=== PATIENT | male | born 2000 | race Caucasian/White ===

== ENCOUNTER 2019-10-07 18:42 | Emergency (ER) | payer BC, SELFPAY ==
--- NOTE | 2019-10-07 18:44 | XR_ITS ---
WS: [id number] XR chest 1V portable [id number] REASON FOR EXAM: cp FINDINGS: Lung wolfe are well aerated. No pneumothorax. No pneumonia, pleural effusion, pulmonary edema. The heart and mediastinum were normal. The hilum and apices normal. XR/XR chest 1V portable [id number] IMPRESSION: Negative chest for acute findings.
[2019-10-07 18:55] VITALS: BP 144/108; PULSE 86; RESP 18; TEMP 36.9; O2SAT 97; BMI 31.5
--- NOTE | 2019-10-07 19:10 | ECG_ITS ---
Measurements Intervals [place] Rate: 90 P: 58 MA: 116 QRS: 61 QRSD: 96 T: 40 QT: 325 QTc: 400 SINUS RHYTHM WITH SHORT MA INTERVAL Compared to ECG 04/25/2016 23:19:37 Short MA interval now present Sinus arrhythmia no longer present Electronically Signed On 10-08-2019 15:23:37 CDT by Faith Leon M.D. [id number]
--- NOTE | 2019-10-07 19:11 | W.ED.CHESTPA ---
HPI - Chest Pain General: Chief Complaint: Chest Pain Stated Complaint: CHEST PAIN, SOB Time Seen by Provider: 10/07/19 19:04 History of Present Illness: HPI narrative: Dima is a 19-year-old male who comes in complaining of a week's worth of sharp intermittent chest pain. The pain is located in the left side of his chest and will last for up to 5 to 10 minutes. Today symptoms have been going on for over an hour and is making him very anxious. He denies any associated symptoms such as shortness of breath, nausea/vomiting, diaphoresis, radiation of his pain or syncope or near syncope. He denies any exacerbating or alleviating factors or having an exertional component to the pain. Patient states there is a strong family history of heart dizziness his family and his mother wants him checked out for a heart attack. There is a family history of heart disease but no one has early onset heart disease in the family. Associated symptoms: Deny abdominal pain, diaphoresis, dyspnea, fever(s), nausea, palpitations, syncope or vomiting Review of Systems General: Reports: other (negative unless marked) Const: Denies: fever, chills, body aches, fatigue, malaise or diaphoresis Eyes: Denies: change in vision or blurry vision ENMT: Denies: throat pain, painful swallowing, hoarseness, ear pain, ear discharge, Change in hearing or nasal discharge Card: Reports: chest pain; Denies: palpitations, irregular heart rhythm, syncope, pre-syncope, shortness of breath on exertion or shortness of breath when lying down Resp: Denies: shortness of breath, productive cough, non-productive cough, wheezing, coughing up blood or chest congestion GI: Denies: abdominal pain, nausea, vomiting, vomiting blood, coffee grounds in vomit, diarrhea, constipation, cramping, blood in stool or black tarry stool : Denies: flank pain, difficulty urinating, painful urination, urinary frequency, urinary urgency, decreased urine ouput, urinary incontinence or blood in urine Musc: Denies: neck pain, back pain, extremity pain, extremity swelling, joint pain, joint swelling, joint warmth or joint stiffness Skin/Breast: Denies: rash, skin tenderness or yellow skin Neuro: Denies: headache, numbness in extremities, weakness in extremities, changes in sensation, lack of coordination, difficulty walking, dizziness, vertigo or confusion Endo: Denies: excessive thirst, tired all the time, cold intolerance, excessive sweating, flushing or hot flashes Alexandr/Lymph: Denies: easy bruising, easy bleeding, petechiae or enlarged lymph nodes All/Imm: Denies: hives, throat swelling, tongue swelling, facial swelling or acute wheezing PFSH ED PFSH: Medical History (Updated 10/07/19 @ 20:23 by Lelia Barney) No pertinent past medical history Surgical History (Updated 10/07/19 @ 19:13 by Lelia Barney) H/O shoulder surgery Family History (Updated 10/07/19 @ 19:13 by Lelia Barney) Other CAD (coronary artery disease) Hypertension Social History (Updated 10/07/19 @ 19:14 by Lelia Barney) Smoking and tobacco status: former smoker Substance/Drug Use: current Substance/Drug use type: Marijuana Physical Exam Const: COMMON NORMALS: no apparent distress, oriented x3, no limitations, healthy appearing and well nourished EXAM LIMITATIONS: no altered mental status GENERAL APPEARANCE: cooperative, well kempt and well developed ORIENTATION/CONSCIOUSNESS: Yes awake HENMT: COMMON NORMALS: normocephalic, head/scalp atraumatic, hearing grossly normal bilaterally, external ears normal, EAC's normal, external nose normal and moist oral mucous membranes HEAD & SCALP: normal to inspection, normocephalic and atraumatic FACE & SINUS: normal facial exam and face symmetric NOSE: external nose normal and nares normal EXTERNAL EAR: Yes external ears normal EXTERNAL AUDITORY CANAL: EAC's normal MOUTH: oral and palatal mucosa normal and tongue normal Eye: COMMON NORMALS: PERRL, EOMs intact bilaterally, conjunctivae normal and no scleral icterus GENERAL EYE: normal appearance of both eyes and normal light reflex CONJUNCTIVA: Yes conjunctivae normal SCLERA: sclerae normal CORNEA: Yes corneas normal PUPIL: Yes PERRL DIRECT OPHTHALMOSCOPY: Yes normal light reflex Neck/C-Spine: COMMON NORMALS: full ROM, no lymphadenopathy, supple, no meningeal signs and no JVD GENERAL: Yes normal visual inspection and Yes trachea midline CERVICAL SPINE: Yes cervical ROM normal Chest: COMMONS NORMALS: inspection of chest normal and palpation of chest normal Resp: COMMON NORMALS: normal respiratory effort, no retractions, no use of accessory muscles and clear to auscultation bilaterally EFFORT & INSPECTION: Yes able to speak in complete sentences AUSCULTATION: clear to auscultation bilaterally Cardio: COMMON NORMALS: no JVD, regular rate, regular rhythm, S1 normal heart sound, S2 normal heart sound, no gallops, no clicks, no murmurs and no rub JUGULAR VENOUS DISTENTION: no JVD RATE: regular rate RHYTHM: regular rhythm HEART SOUNDS: S1 normal and S2 normal GI: COMMON NORMALS: soft to palpation, non-tender, no hepatosplenomegaly and no masses INSPECTION: Yes normal to inspection PALPATION: Yes soft and Yes no hepatosplenomegaly : COMMON NORMALS: Yes no CVA tenderness BLADDER/KIDNEY EXAM: Yes no CVA tenderness Back/Pelvis: COMMON NORMALS: no CVA tenderness, thoracic and lumbar spine normal to inspection, no thoracic nor lumbar tenderness and thoraco-lumbar ROM normal Extremity: COMMON NORMALS: normal to inspection, full ROM, normal capillary refill, no joint enlargement, no clubbing, cyanosis or edema and no calf tenderness Neuro: COMMON NORMALS: oriented x3, CN's II-XII intact bilaterally, moves all extremities, no focal motor deficits and no sensory deficits noted MENINGEAL SIGNS: Yes no meningeal signs Psych: COMMON NORMALS: mental status grossly normal, thought process normal, cooperative, affect normal, speech normal and activity/motor behavior normal APPEARANCE: Yes well kempt SPEECH: Yes normal speech THOUGHT PROCESS: normal thought process Skin: COMMON NORMALS: no rashes or lesions noted, skin turgor normal, no jaundice, no petechiae and no mottling GENERAL SKIN EXAM: no rashes or lesions noted and turgor normal Course Vital Signs: Vital signs: Vital Signs Temperature 98.5 F 10/07/19 18:55 Pulse Rate 85 10/07/19 21:04 Respiratory Rate 16 10/07/19 21:04 Blood Pressure 144/95 10/07/19 21:04 Pulse Oximetry 98 10/07/19 21:04 MDM - Chest Pain MDM Narrative: Medical decision making narrative: Dima is a 19-year-old male who comes in stating that he has having an anxiety attack now. He states he is under a great deal of stress at home. He did not think that the chest pain was caused by his heart but he wanted to please his mother and so he underwent the evaluation. There is no sign of acute coronary syndrome, pulmonary embolism or otherwise. I will go and discharge the patient home with Atarax for anxiety and he agrees to follow-up with his doctor or with the behavioral health clinic in [place] for possible addition of anxiety medication. Lab Data: Labs: Lab Results 10/07/19 10/07/19 10/07/19 Range/Units 19:23 19:23 19:23 WBC 10.6 H (4.0-10.0) 10^3/ uL RBC 5.21 (4.1-5.3) 10^6/u L Hgb 14.4 (11.7-16.6) g/dL Hct 43.8 (42.0-52.0) % MCV 84.1 (80-94) fL MCH 27.6 L (28.0-34.0) pg MCHC 32.9 (30.0-36.0) g/dL RDW 12.1 (12.1-15.1) % Plt Count 258 (130-400) 10^3/c mm MPV 10.3 (7.4-10.4) fL Neut % (Auto) 71.6 % Lymph % (Auto) 18.8 % Harrison % (Auto) 6.5 % Eos % (Auto) 2.1 % Baso % (Auto) 0.5 % Neut # (Auto) 7.6 (1.8-7.7) 10^3/u L Lymph # (Auto) 2.0 (0.8-4.8) 10^3/u L Harrison # (Auto) 0.7 (0.2-0.9) 10^3/u L Eos # (Auto) 0.2 (0.0-0.8) 10^3/u L Baso # (Auto) 0.1 (0.0-0.1) 10^3/u L Nucleated RBC % (a uto) 0 % Nucleated RBCs # 0.0 /100WBC D-Dimer <= 0.27 (0-0.59) ug/mIFE U Sodium 141 (136-145) mmol/L Potassium 4.3 (3.5-5.1) mmol/L Chloride 105 (98-107) mmol/L Carbon Dioxide 23 (22-29) mmol/L Anion Gap 17.3 (5-19) BUN 18 (6-20) mg/dL Creatinine 1.0 (0.7-1.2) mg/dL GFR Calculation 94.3 (90-130) mL/min Glucose 97 (65-115) mg/dL Calculated Osmolal ity 288 (285-295) mOsm/k g Calcium 10.7 H (8.5-10.5) mg/dL Magnesium 2.1 (1.7-2.3) mg/dL Total Bilirubin 0.3 (0.15-1.2) mg/dL AST 25 (0-40) U/L ALT 34 (0-41) U/L Alkaline Phosphata se 69 (40-130) IU/L Troponin T Baselin e (0-15) ng/mL Total Protein 7.9 (6.6-8.7) g/dL Albumin 4.9 (3.5-5.2) g/dL Globulin 3.0 (1.3-4.6) g/dL 10/07/19 Range/Units 19:23 WBC (4.0-10.0) 10^3/ uL RBC (4.1-5.3) 10^6/u L Hgb (11.7-16.6) g/dL Hct (42.0-52.0) % MCV (80-94) fL MCH (28.0-34.0) pg MCHC (30.0-36.0) g/dL RDW (12.1-15.1) % Plt Count (130-400) 10^3/c mm MPV (7.4-10.4) fL Neut % (Auto) % Lymph % (Auto) % Harrison % (Auto) % Eos % (Auto) % Baso % (Auto) % Neut # (Auto) (1.8-7.7) 10^3/u L Lymph # (Auto) (0.8-4.8) 10^3/u L Harrison # (Auto) (0.2-0.9) 10^3/u L Eos # (Auto) (0.0-0.8) 10^3/u L Baso # (Auto) (0.0-0.1) 10^3/u L Nucleated RBC % (a uto) % Nucleated RBCs # /100WBC D-Dimer (0-0.59) ug/mIFE U Sodium (136-145) mmol/L Potassium (3.5-5.1) mmol/L Chloride (98-107) mmol/L Carbon Dioxide (22-29) mmol/L Anion Gap (5-19) BUN (6-20) mg/dL Creatinine (0.7-1.2) mg/dL GFR Calculation (90-130) mL/min Glucose (65-115) mg/dL Calculated Osmolal ity (285-295) mOsm/k g Calcium (8.5-10.5) mg/dL Magnesium (1.7-2.3) mg/dL Total Bilirubin (0.15-1.2) mg/dL AST (0-40) U/L ALT (0-41) U/L Alkaline Phosphata se (40-130) IU/L Troponin T Baselin e 12 (0-15) ng/mL Total Protein (6.6-8.7) g/dL Albumin (3.5-5.2) g/dL Globulin (1.3-4.6) g/dL Imaging Data^: CXR: My impression: No acute cardiopulmonary findings. EKG Data^: EKG 1: Attestation: I personally reviewed and interpreted this EKG as follows: EKG interpretation date: 10/07/19 EKG interpretation time: 19:12 Interpretation: Normal sinus rhythm at 90 beats a minute, short NC interval, nonspecific ST and T wave changes. Discharge Plan Discharge Patient Disposition: Home, Self-Care Clinical Impression: Panic attack due to exceptional stress Condition: Stable Prescriptions: New hydroxyzine HCl 50 mg tablet 50 mg PO TID PRN (Reason: anxiety) Qty: 30 RF: 0 No Action buspirone 5 mg Tablet 5 mg PO TID RF: 0 Discharge Orders: Discharge Order (Routine); Ordered 10/07/19 Ordered By: Lelia Barney Referrals: Radha Infante FNP [Primary Care Provider] - [facility] [place] - [place], [Staff Physician] - 1-3 days (You can also call the [facility] facility in [place] for an appointment to be seen.) Discharge Diet: Advance as tolerated Discharge Activity: Increase activity as tolerated Patient Instructions: Anxiety (ED) Activity Restrictions/Additional Instructions: Please return to the ER immediately for any of the signs or symptoms listed on your discharge instruction sheets, worsening/changing of your symptoms, you are not getting better as quickly as expected, or for ANY other cause or concerns. Return to the ER if your chest pain worsens, your anxiety worsens or you develop any thoughts of wanting to hurt yourself or anyone else. Discharge Date/Time: 10/07/19 21:05 Coding Level of Care Code ED Clinical Project Assistant for Yusuf Fwd Exam Comprehensive
[2019-10-07] MEDS: sodium chloride 0.9% 1,000 ML 999 ML IV (19:24)
[2019-10-07] MEDS: LORazepam 2 mg/mL INJ 1 mL 1 MG IVP (19:24)
[2019-10-07 19:37] LABS: Basophils # 0.1 10^3/uL (0.0-0.1); Basophils % 0.5 %; Eosinophils # 0.2 10^3/uL (0.0-0.8); Eosinophils % 2.1 %; Hematocrit 43.8 % (42.0-52.0); Hemoglobin 14.4 g/dL (11.7-16.6); Lymphocytes % 18.8 %; Mean Corpuscular HGB Conc 32.9 g/dL (30.0-36.0); Mean Corpuscular Hemoglobin 27.6 pg (28.0-34.0); Mean Corpuscular Volume 84.1 fL (80-94); Mean Platelet Volume 10.3 fL (7.4-10.4); Monocytes # 0.7 10^3/uL (0.2-0.9); Monocytes % 6.5 %; Neutrophils # 7.6 10^3/uL (1.8-7.7); Neutrophils % 71.6 %; Nucleated Red Blood Cells % 0 %; Platelet Count 258 10^3/cmm (130-400); Red Blood Count 5.21 10^6/uL (4.1-5.3); Red Cell Distribution Width 12.1 % (12.1-15.1); White Blood Count 10.6 10^3/uL (4.0-10.0)
[2019-10-07 19:58] LABS: D Dimer <= 0.27 ug/mIFEU (0-0.59)
[2019-10-07 20:04] LABS: Alanine Aminotransferase 34 U/L (0-41); Albumin Level 4.9 g/dL (3.5-5.2); Alkaline Phosphatase 69 IU/L (40-130); Anion Gap 17.3 (5-19); Aspartate Amino Transferase 25 U/L (0-40); Blood Urea Nitrogen 18 mg/dL (6-20); Calcium 10.7 mg/dL (8.5-10.5); Carbon Dioxide 23 mmol/L (22-29); Chloride 105 mmol/L (98-107); Creatinine Clr Calc Pharmacy 138.3639; Glomerular Filtration Rate 94.3 mL/min (90-130); Glucose 97 mg/dL (65-115); Magnesium 2.1 mg/dL (1.7-2.3); Osmolality Calculated 288 mOsm/kg (285-295); Potassium 4.3 mmol/L (3.5-5.1); Sodium 141 mmol/L (136-145); Total Bilirubin 0.3 mg/dL (0.15-1.2); Total Protein 7.9 g/dL (6.6-8.7)
[2019-10-07 20:06] LABS: Troponin(5th) Baseline 12 ng/mL (0-15)
[2019-10-07 20:29] VITALS: BP 146/89; PULSE 80; RESP 16; O2SAT 97
[2019-10-07 21:04] VITALS: BP 144/95; PULSE 85; RESP 16; O2SAT 98
== END 2019-10-07 21:05 | disposition home or self-care (01) ==
PROVIDERS: Emergency Provider Emergency Medicine; PCP Nurse Practitioner Family
DX: F43.0 Acute stress reaction (principal); Z87.891 Personal history of nicotine dependence
CPT/HCPCS: 12345; 71045; 80053; 83735; 84484; 85025; 85378; 93005; 96361; 96374; 99283; 99284; J2060; J7030

== ENCOUNTER → 2020-01-14 13:42 | Outpatient (BNVA) | payer BC, SELFPAY | PROVIDERS: PCP Nurse Practitioner Family; Visit Provider Psychiatry & Neurology Psychiatry | DX: F41.1 Generalized anxiety disorder (principal); F33.1 Major depressive disorder, recurrent, moderate; F43.12 Post-traumatic stress disorder, chronic; F12.20 Cannabis dependence, uncomplicated; F17.200 Nicotine dependence, unspecified, uncomplicated | CPT/HCPCS: 99204 ==

== ENCOUNTER → 2020-01-31 10:01 | Outpatient (BNVA) | payer BC, SELFPAY | PROVIDERS: PCP Nurse Practitioner Family; Visit Provider Counselor Professional | DX: F12.20 Cannabis dependence, uncomplicated (principal); F17.200 Nicotine dependence, unspecified, uncomplicated; F33.1 Major depressive disorder, recurrent, moderate; F41.1 Generalized anxiety disorder; F43.12 Post-traumatic stress disorder, chronic | CPT/HCPCS: 90834 ==

== ENCOUNTER → 2020-02-09 09:53 | Outpatient (BNVA) | payer BC, SELFPAY | PROVIDERS: PCP Nurse Practitioner Family; Visit Provider Counselor Professional | DX: F41.1 Generalized anxiety disorder (principal); F33.1 Major depressive disorder, recurrent, moderate; F43.12 Post-traumatic stress disorder, chronic; F12.20 Cannabis dependence, uncomplicated; F17.200 Nicotine dependence, unspecified, uncomplicated | CPT/HCPCS: 90834 ==

== ENCOUNTER → 2020-02-16 09:24 | Outpatient (BNVA) | payer BC, SELFPAY | PROVIDERS: PCP Nurse Practitioner Family; Visit Provider Psychiatry & Neurology Psychiatry | DX: F43.12 Post-traumatic stress disorder, chronic (principal); F33.1 Major depressive disorder, recurrent, moderate; F41.1 Generalized anxiety disorder; F17.200 Nicotine dependence, unspecified, uncomplicated; F12.20 Cannabis dependence, uncomplicated | CPT/HCPCS: 99213 ==

== ENCOUNTER → 2020-02-17 08:29 | Outpatient (BNVA) | payer BC, SELFPAY | PROVIDERS: PCP Nurse Practitioner Family; Visit Provider Counselor Professional | DX: F41.1 Generalized anxiety disorder (principal) | CPT/HCPCS: 90834 ==

== ENCOUNTER → 2020-03-23 08:32 | Outpatient (BNVA) | payer BC, SELFPAY | PROVIDERS: PCP Nurse Practitioner Family; Visit Provider Counselor Professional | DX: F41.1 Generalized anxiety disorder (principal); F33.1 Major depressive disorder, recurrent, moderate; F43.12 Post-traumatic stress disorder, chronic; F12.20 Cannabis dependence, uncomplicated; F17.200 Nicotine dependence, unspecified, uncomplicated | CPT/HCPCS: 90834 ==

== ENCOUNTER → 2020-03-30 08:26 | Outpatient (BNVA) | payer BC, SELFPAY | PROVIDERS: PCP Nurse Practitioner Family; Visit Provider Counselor Professional | DX: F33.1 Major depressive disorder, recurrent, moderate (principal); F41.1 Generalized anxiety disorder; F43.12 Post-traumatic stress disorder, chronic | CPT/HCPCS: 90834 ==

== ENCOUNTER → 2020-04-04 07:47 | Outpatient (BNVA) | payer BC, SELFPAY | PROVIDERS: PCP Nurse Practitioner Family; Visit Provider Psychiatry & Neurology Psychiatry | DX: F43.12 Post-traumatic stress disorder, chronic (principal); F33.1 Major depressive disorder, recurrent, moderate; F41.1 Generalized anxiety disorder; F17.200 Nicotine dependence, unspecified, uncomplicated; F12.20 Cannabis dependence, uncomplicated | CPT/HCPCS: 99214 ==

== ENCOUNTER → 2020-04-14 07:37 | Outpatient (BNVA) | payer BC, SELFPAY | PROVIDERS: PCP Nurse Practitioner Family; Visit Provider Psychiatry & Neurology Psychiatry | DX: F41.1 Generalized anxiety disorder (principal); F43.12 Post-traumatic stress disorder, chronic; F33.1 Major depressive disorder, recurrent, moderate; F17.200 Nicotine dependence, unspecified, uncomplicated; F12.20 Cannabis dependence, uncomplicated | CPT/HCPCS: 99213 ==

== ENCOUNTER → 2020-04-21 08:09 | Outpatient (BNVA) | payer BC, SELFPAY | PROVIDERS: PCP Nurse Practitioner Family; Visit Provider Counselor Professional | DX: F17.200 Nicotine dependence, unspecified, uncomplicated (principal); F12.20 Cannabis dependence, uncomplicated; F43.12 Post-traumatic stress disorder, chronic; F33.1 Major depressive disorder, recurrent, moderate; F41.1 Generalized anxiety disorder | CPT/HCPCS: 90832; 90834 ==

== ENCOUNTER → 2020-05-03 07:58 | Outpatient (BNVA) | payer BC, SELFPAY | PROVIDERS: PCP Nurse Practitioner Family; Visit Provider Psychiatry & Neurology Psychiatry | DX: F43.12 Post-traumatic stress disorder, chronic (principal); F33.1 Major depressive disorder, recurrent, moderate; F41.1 Generalized anxiety disorder; F17.200 Nicotine dependence, unspecified, uncomplicated; F12.20 Cannabis dependence, uncomplicated | CPT/HCPCS: 99213 ==

== ENCOUNTER → 2020-05-05 08:08 | Outpatient (BNVA) | payer BC, SELFPAY | PROVIDERS: PCP Nurse Practitioner Family; Visit Provider Counselor Professional | DX: F41.1 Generalized anxiety disorder (principal); F17.200 Nicotine dependence, unspecified, uncomplicated; F12.20 Cannabis dependence, uncomplicated; F43.12 Post-traumatic stress disorder, chronic; F33.1 Major depressive disorder, recurrent, moderate | CPT/HCPCS: 90834 ==

== ENCOUNTER → 2020-05-11 07:54 | Outpatient (BNVA) | payer BC, SELFPAY | PROVIDERS: PCP Nurse Practitioner Family; Visit Provider Counselor Professional | DX: F41.1 Generalized anxiety disorder (principal); F17.200 Nicotine dependence, unspecified, uncomplicated; F12.20 Cannabis dependence, uncomplicated; F43.12 Post-traumatic stress disorder, chronic; F33.1 Major depressive disorder, recurrent, moderate | CPT/HCPCS: 90832 ==

== ENCOUNTER → 2020-07-31 08:21 | Outpatient (BNVA) | payer BC, SELFPAY | PROVIDERS: PCP Nurse Practitioner Family; Visit Provider Psychiatry & Neurology Psychiatry | DX: F43.12 Post-traumatic stress disorder, chronic (principal); F33.1 Major depressive disorder, recurrent, moderate; F41.1 Generalized anxiety disorder; F17.200 Nicotine dependence, unspecified, uncomplicated; F12.20 Cannabis dependence, uncomplicated | CPT/HCPCS: 99213 ==

== ENCOUNTER → 2020-12-28 11:32 | Outpatient (BNVA) | payer OTHER, SELFPAY | PROVIDERS: PCP Nurse Practitioner Family; Visit Provider Nurse Practitioner Family | DX: Z20.822 Contact with and (suspected) exposure to COVID-19 (principal); J06.9 Acute upper respiratory infection, unspecified | CPT/HCPCS: 87635 ==

== ENCOUNTER 2021-01-04 10:38 | Emergency (ER) | payer SELFPAY ==
[2021-01-04 11:10] VITALS: BP 135/80; PULSE 71; RESP 15; O2SAT 96; BMI 31.0
[2021-01-04 11:14] VITALS: BP 135/80; PULSE 70; RESP 18; O2SAT 98
--- NOTE | 2021-01-04 11:22 | XRR_ITS ---
PROCEDURE INFORMATION: Exam: XR Chest Exam date and time: 01/04/2021 11:22 AM Age: 20 years old Clinical indication: Weakness and fatigue TECHNIQUE: Imaging protocol: XR of the chest. Views: 1 view. COMPARISON: CR XR chest 1V portable [id number] 10/07/2019 7:04 PM FINDINGS: Lungs: No pulmonary consolidation. Pleural spaces: No pleural effusion.; No pneumothorax. Heart/Mediastinum: The cardiac silhouette is unchanged. No gross evidence of pneumomediastinum. Bones/joints: No gross fracture. XR/XR chest 1V portable [id number] IMPRESSION: No acute cardiopulmonary abnormality identified.
--- NOTE | 2021-01-04 11:22 | ECG_ITS ---
[facility] ED Test Date: 2021-01-04 Pat Name: Dima Castañeda Department: Room: Gender: Male [place]er: : 2000 Requested By: Austin Villanueva Order Number: [id number] Erazo MD: Faith Leon M.D. Measurements Intervals [place] Rate: 67 P: 53 IA: 142 QRS: 61 QRSD: 93 T: 56 QT: 378 QTc: 401 Interpretive Statements SINUS RHYTHM WITH SINUS ARRHYTHMIA Compared to ECG 10/07/2019 19:12:06 Short IA interval no longer present Electronically Signed On 01-05-2021 16:43:10 CDT by Faith Leon M.D. [id number]
--- NOTE | 2021-01-04 11:24 | W.ED.WEAKNES ---
HPI - Weakness General: Chief complaint: Weakness Stated complaint: DIZZY, OVERHEATED TINGLING IN FEET Time Seen by Provider: 01/04/21 11:07 History of Present Illness: HPI Narrative: Patient is a 20-year-old male who comes to the ED with weakness and dizziness. Patient says symptoms started today when he woke up. He says he has had similar episodes like this before when he has been dehydrated and had a heatstroke. 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 He reports that he is excessively thirsty and sweats a lot while at work. Today he drank 2 Powerade's before coming to the ED. Patient got the first Moderna COVID-19 vacc shot 2 days ago and yesterday he had a headache and today he is having nausea, dizziness and fatigue. Patient also reports having to take bites within the last week one is on his left axillary region and the other 1 is on his left medial ankle. Denies any intake of heavily caffeinated drinks or energy drinks. Denies any fever, chills, upper respiratory symptoms, cough chest pain, shortness of breath, abdominal pain, bladder or bowel symptoms. Associated symptoms: Reports nausea; Denies chest pain, chills, dysuria, fever(s), headache(s) or vomiting Review of Systems Const: Reports: fatigue (generalized weakness); Denies: fever(s) or chills Eyes: Denies: change in vision or eye discomfort ENMT: Denies: throat pain, odynophagia, nasal discharge or nasal congestion Card: Denies: chest pain, palpitations, edema, swelling of feet/ankles, dyspnea on exertion or orthopnea Resp: Denies: dyspnea, productive cough or non-productive cough GI: Reports: nausea; Denies: abdominal pain, vomiting, diarrhea, constipation or hematochezia : Denies: flank pain, difficulty urinating, dysuria or hematuria Musc: Denies: neck pain, back pain or extremity swelling Skin/Breast: Reports: new lesions (2 tick bites one on left axillary region and one on left ankle.); Denies: rash Neuro: Reports: dizziness; Denies: headache(s), numbness in extremities or weakness in extremities Endo: Reports: polydipsia and excessive sweating [facility] ED PFSH: Medical History No pertinent past medical history Surgical History H/O shoulder surgery Family History Other CAD (coronary artery disease) Hypertension Social History Smoking and tobacco status: current every day smoker e-cigarettes E-Cigarette Details: with nicotine Quit status (tobacco): has tried quititng Number of times tried to quit tobacco: 2 Smoking risk assessment/counseling performed?: No Current gender identity: Male Physical Exam Const: COMMON NORMALS: no acute distress, patient oriented x3 and alert GENERAL APPEARANCE: cooperative and comfortable HENMT: COMMON NORMALS: normocephalic HEAD & SCALP: normocephalic MOUTH: Normal oral and palatal mucosa present THROAT: posterior oropharynx normal and uvula midline Neck/C-Spine: COMMON NORMALS: supple GENERAL: Yes normal visual inspection Resp: COMMON NORMALS: normal respiratory effort, No retractions, No use of accessory muscles and clear to auscultation bilaterally AUSCULTATION: clear to auscultation bilaterally Cardio: COMMON NORMALS: regular rate, regular rhythm, S1 normal heart sound present, S2 normal heart sound present, No gallops present (Cardio), No clicks present (Cardio), No murmurs present (Cardio) and Peripheral pulses 2+ throughout RATE: regular rate RHYTHM: regular rhythm HEART SOUNDS: S1 normal heart sound present and S2 normal heart sound present PERIPHERAL PULSES: Peripheral pulses 2+ throughout GI: COMMON NORMALS: Normal to inspection, nondistended, normoactive bowel sounds present, Soft to palpation, non-tender and no masses PALPATION: Yes Soft to palpation : COMMON NORMALS: Yes no CVA tenderness BLADDER/KIDNEY EXAM: Yes no CVA tenderness Back/Pelvis: COMMON NORMALS: no CVA tenderness Extremity: COMMON NORMALS: normal to inspection Neuro: COMMON NORMALS: patient oriented x3 and moves all extremities SENSORIUM/ORIENTATION: Yes alert Skin: NARRATIVE SKIN EXAM: 2 tick bites one on left axillary region and one on left ankle. Raised and red nodules were tick bite was. No visible tick seen and patient said he fully removed intact tick. No erythema migrans seen. GENERAL SKIN EXAM: dry skin Course Vital Signs: Vital signs: Vital Signs Temperature 98.8 F 01/04/21 13:22 Pulse Rate 71 01/04/21 13:44 Respiratory Rate 18 01/04/21 13:44 Blood Pressure 115/54 01/04/21 13:44 Pulse Oximetry 98 01/04/21 13:44 MDM - Weakness MDM Narrative: Medical decision making narrative: Patient is a 20-year-old male comes to the ED with fatigue and dizziness. 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 Patient also got the first Moderna COVID-19 shot 2 days ago and says that yesterday he had a really bad headache and did not feel good and today has fatigue and dizziness. Patient also has 2 tick bites that occurred within the last 2 weeks patient had ticks removed before coming to the ED. Patient appears healthy and nontoxic in no acute distress. Exam is benign. Tick bite showed no erythema migrans rash. Labs are unremarkable. Tick panel pending. Troponin negative, EKG showed normal sinus rhythm with no ST segment elevation or depression seen. Chest x-ray showed no acute findings and CT of head showed no acute findings. Patient diagnosed with fatigue after COVID-19 vaccination and tick bite. He was discharged home with a prescription for doxycycline. Is told to make sure he drinks plenty of fluids and stays hydrated when he is working outside and to follow-up with her PCP in 7 to 10 days for reevaluation. Return to ED precautions given. Patient understood and agreed with plan. Lab Data: Attestation: I reviewed the patient's lab results. Labs: Lab Results 01/04/21 01/04/21 01/04/21 Range/Units 11:26 11:26 11:26 WBC 9.5 (4.0-10.0) 10^3/ uL RBC 4.89 (4.1-5.3) 10^6/u L Hgb 13.8 (11.7-16.6) g/dL Hct 42.1 (42.0-52.0) % MCV 86.1 (80-94) fL MCH 28.2 (28.0-34.0) pg MCHC 32.8 (30.0-36.0) g/dL RDW 12.5 (12.1-15.1) % Plt Count 215 (130-400) 10^3/c mm MPV 10.1 (7.4-10.4) fL Neut % (Auto) 75.3 % Lymph % (Auto) 14.1 % [place] % (Auto) 6.9 % Eos % (Auto) 2.9 % Baso % (Auto) 0.5 % Neut # (Auto) 7.12 (1.8-7.7) 10^3/u L Lymph # (Auto) 1.3 (0.8-4.8) 10^3/u L [place] # (Auto) 0.7 (0.2-0.9) 10^3/u L Eos # (Auto) 0.3 (0.0-0.8) 10^3/u L Baso # (Auto) 0.1 (0.0-0.1) 10^3/u L Nucleated RBC % (a uto) 0 % Nucleated RBCs # 0.0 /100WBC Sodium 135 L (136-145) mmol/L Potassium 5.3 H (3.5-5.1) mmol/L Chloride 98 (98-107) mmol/L Carbon Dioxide 24 (22-29) mmol/L Anion Gap 18.3 (5-19) BUN 18 (6-20) mg/dL Creatinine 0.9 (0.7-1.2) mg/dL GFR Calculation 105.5 (90-130) mL/min Glucose 73 (65-115) mg/dL Calculated Osmolal ity 280 L (285-295) mOsm/k g Calcium 9.3 (8.5-10.5) mg/dL Total Bilirubin 0.4 (0.15-1.2) mg/dL AST 21 (0-40) U/L ALT 16 (0-41) U/L Alkaline Phosphata se 73 (40-130) IU/L Troponin T Gen 5 n g/L 6 (0-15) ng/L Total Protein 7.3 (6.6-8.7) g/dL Albumin 5.0 (3.5-5.2) g/dL Globulin 2.3 (1.3-4.6) g/dL Lipase 16 (13-60) U/L Urine Color (Yellow) Urine Appearance (CLEAR) Urine pH (5-7) Ur Specific Gravit y (1.005-1.030) Urine Protein (Negative) Urine Glucose (UA) (Normal) Urine Ketones (Negative) Urine Blood (Negative) Urine Nitrate (Negative) Urine Bilirubin (Negative) Urine Urobilinogen (Negative) mg/dL Ur Leukocyte Jazmyne ase (Negative) Urine RBC (0-2) /hpf Urine WBC (0-5) /hpf Ur Squamous Epith Cells (0-5) /hpf Amorphous Sediment Urine Bacteria (NONE) /hpf 01/04/21 Range/Units 12:07 WBC (4.0-10.0) 10^3/ uL RBC (4.1-5.3) 10^6/u L Hgb (11.7-16.6) g/dL Hct (42.0-52.0) % MCV (80-94) fL MCH (28.0-34.0) pg MCHC (30.0-36.0) g/dL RDW (12.1-15.1) % Plt Count (130-400) 10^3/c mm MPV (7.4-10.4) fL Neut % (Auto) % Lymph % (Auto) % [place] % (Auto) % Eos % (Auto) % Baso % (Auto) % Neut # (Auto) (1.8-7.7) 10^3/u L Lymph # (Auto) (0.8-4.8) 10^3/u L [place] # (Auto) (0.2-0.9) 10^3/u L Eos # (Auto) (0.0-0.8) 10^3/u L Baso # (Auto) (0.0-0.1) 10^3/u L Nucleated RBC % (a uto) % Nucleated RBCs # /100WBC Sodium (136-145) mmol/L Potassium (3.5-5.1) mmol/L Chloride (98-107) mmol/L Carbon Dioxide (22-29) mmol/L Anion Gap (5-19) BUN (6-20) mg/dL Creatinine (0.7-1.2) mg/dL GFR Calculation (90-130) mL/min Glucose (65-115) mg/dL Calculated Osmolal ity (285-295) mOsm/k g Calcium (8.5-10.5) mg/dL Total Bilirubin (0.15-1.2) mg/dL AST (0-40) U/L ALT (0-41) U/L Alkaline Phosphata se (40-130) IU/L Troponin T Gen 5 n g/L (0-15) ng/L Total Protein (6.6-8.7) g/dL Albumin (3.5-5.2) g/dL Globulin (1.3-4.6) g/dL Lipase (13-60) U/L Urine Color Straw (Yellow) Urine Appearance Clear (CLEAR) Urine pH 6 (5-7) Ur Specific Gravit y 1.005 (1.005-1.030) Urine Protein 1+ H (Negative) Urine Glucose (UA) Norm (Normal) Urine Ketones Negative (Negative) Urine Blood Neg (Negative) Urine Nitrate Negative (Negative) Urine Bilirubin Neg (Negative) Urine Urobilinogen Neg (Negative) mg/dL Ur Leukocyte Jazmyne ase Negative (Negative) Urine RBC None (0-2) /hpf Urine WBC None (0-5) /hpf Ur Squamous Epith Cells None (0-5) /hpf Amorphous Sediment Not Reportable Urine Bacteria Trace (NONE) /hpf Imaging Data^: CXR: Attestation: I personally reviewed and interpreted this imaging study as follows: Radiologist's impression: [address] [address] XRay Report Signed Patient: Dima Castañeda Unit #: [id number] : 2000 Age/Sex: 20 / M ADM Date: 01/04/21 Loc: ER Room/Bed: Attending Dr: Ordering Provider/Ordering MD: Austin Villanueva Date of Service: 01/04/21 Procedure(s): XR chest 1V portable [id number] Accession Number(s): [id number] Report Number: [id number] PROCEDURE INFORMATION: Exam: XR Chest Exam date and time: 01/04/2021 11:22 AM Age: 20 years old Clinical indication: Weakness and fatigue TECHNIQUE: Imaging protocol: XR of the chest. Views: 1 view. COMPARISON: CR XR chest 1V portable [id number] 10/07/2019 7:04 PM FINDINGS: Lungs: No pulmonary consolidation. Pleural spaces: No pleural effusion.; No pneumothorax. Heart/Mediastinum: The cardiac silhouette is unchanged. No gross evidence of pneumomediastinum. Bones/joints: No gross fracture. XR/XR chest 1V portable [id number] IMPRESSION: No acute cardiopulmonary abnormality identified. Dictated By: Sina Sher Signed By: Sina Sher Signed Date/Time: 01/04/21 1232 DD/ 1232 CT Head: Attestation: I personally reviewed and interpreted this imaging study as follows: Radiologist's impression: [address] [place] [address] CT Scan Report Signed Patient: Dima Castañeda Unit #: [id number] : 2000 Age/Sex: 20 / M ADM Date: 01/04/21 Loc: ER Room/Bed: Attending Dr: Ordering Provider/Ordering MD: Austin Villanueva Date of Service: 01/04/21 Procedure(s): CT head wo con* [id number] Accession Number(s): [id number] Report Number: [id number] WS: [id number] CT HEAD NONCONTRAST HISTORY: headache and dizziness TECHNIQUE: Contiguous axial imaging performed through the brain in 2.5 mm imaging. Bone and soft tissue windows. Sagittal and coronal reformats reviewed. All CT scans at [facility] use at least one of these dose optimization techniques: automated exposure control; mA and/or kV adjustment per patient size (includes targeted exams where dose is matched to clinical indication); or iterative reconstruction. DLP: 897.97 mGy.cm COMPARISON: 01/17/2015 No acute intracranial hemorrhage, midline shift or mass effect. No atrophy or prior infarcts or herniation. Benign basal ganglia calcifications. Ventricles: Normal size with no hydrocephalus. Paranasal sinuses: As visualized are clear. Mastoid air cells: Well pneumatized. Calvarium and scalp: Skull is intact with no soft tissue edema or swelling. CT/CT head wo con* [id number] IMPRESSION: Negative head CT. Dictated By: Shaista Lind DO Signed By: Shaista Lind DO Signed Date/Time: 01/04/21 1202 DD/ 1158 EKG Data^: EKG 1: Attestation: I personally reviewed and interpreted this EKG as follows: EKG interpretation date: 01/04/21 Interpretation: Normal sinus rhythm, 67 bpm, no ST segment elevation or depression seen. Normal EKG. Discharge Plan Discharge Patient Disposition: Home Clinical Impression: Fatigue after COVID-19 vaccination Tick bite Qualifiers: Encounter type: initial encounter Qualified Code(s): W57.XXXA - Bitten or stung by nonvenomous insect and other nonvenomous arthropods, initial encounter Condition: Stable Prescriptions: New doxycycline hyclate 100 mg capsule 100 mg PO BID 10 Days Qty: 20 RF: 0 No Action Tylenol Arthritis Pain 650 mg Tablet Extended Release 1,300 mg PO PRN RF: 0 BuSpar 10 mg Tablet 10 mg PO QAM RF: 0 lisinopril 5 mg Tablet 5 mg PO BID PRN (Reason: Blood Pressure) RF: 0 nystatin 100,000 unit/gram Powder 1 applic TOPICAL BID PRN (Reason: unknown) RF: 0 ProAir HFA 90 mcg/actuation Hfa Aerosol Inhaler 2 puff INHALATION Q4H PRN (Reason: Shortness Of Breath) RF: 0 Flonase 50 mcg/actuation [place],Suspension 2 spray INTRANASAL DAILY PRN (Reason: Allergy Symptoms) RF: 0 fluoxetine 40 mg capsule 40 mg PO QAM RF: 0 propranolol 20 mg tablet 20 mg PO QAM RF: 0 mirtazapine 7.5 mg tablet 7.5 mg PO BEDTIME RF: 0 Discharge Orders: Discharge ED (Routine); Ordered 01/04/21 Ordered By: Austin Villanueva Referrals: Radha Infante FNP [Primary Care Provider] - Discharge Diet: Regular Discharge Activity: Increase activity as tolerated Patient Instructions: Lyme Disease (ED), Tick Bite (ED), Gibson Spotted Fever (ED) Activity Restrictions/Additional Instructions: Follow-up with medical provider as directed in 7 to 10 days for reevaluation. Take medications as prescribed. Return to the ER or your medical provider if condition worsens. Please read and understand discharge instructions. Thank you for choosing [facility] for your healthcare needs today. Please realize this is an emergency room and that we are providing you with a medical screening exam and this may not be complete and all inclusive of all the testing and or work up that you may need to determine your ailment or severity of your illness. It is very important that you follow up as instructed or that you return to the Emergency Department should you have concerns or if your condition changes or worsens in any way. Stand Alone Forms: Work/School Release Coding Level of Care Code ED Health Teacher for Yusuf Fwd Exam Comprehensive
--- NOTE | 2021-01-04 11:31 | CT_ITS ---
WS: [id number] CT HEAD NONCONTRAST HISTORY: headache and dizziness TECHNIQUE: Contiguous axial imaging performed through the brain in 2.5 mm imaging. Bone and soft tiss ue windows. Sagittal and coronal reformats reviewed. All CT scans at [facility] use at ast one of these dose optimization techniques: automated exposure control; mA and/or kV adjustment pe r patient size (includes targeted exams where dose is matched to clinical indication); or iterative r econstruction. DLP: 897.97 mGy.cm COMPARISON: 01/17/2015 No acute intracranial hemorrhage, midline shift or mass effect. No atrophy or prior infarcts or herniation. Benign basal ganglia calcifications. Ventricles: Normal size with no hydrocephalus. Paranasal sinuses: As visualized are clear. Mastoid air cells: Well pneumatized. Calvarium and scalp: Skull is intact with no soft tissue edema or swelling. CT/CT head wo con* [id number] IMPRESSION: Negative head CT.
[2021-01-04 11:32] LABS: Basophils # 0.1 10^3/uL (0.0-0.1); Basophils % 0.5 %; Eosinophils # 0.3 10^3/uL (0.0-0.8); Eosinophils % 2.9 %; Hematocrit 42.1 % (42.0-52.0); Hemoglobin 13.8 g/dL (11.7-16.6); Lymphocytes # 1.3 10^3/uL (0.8-4.8); Lymphocytes % 14.1 %; Mean Corpuscular HGB Conc 32.8 g/dL (30.0-36.0); Mean Corpuscular Hemoglobin 28.2 pg (28.0-34.0); Mean Corpuscular Volume 86.1 fL (80-94); Mean Platelet Volume 10.1 fL (7.4-10.4); Monocytes # 0.7 10^3/uL (0.2-0.9); Monocytes % 6.9 %; Neutrophils # 7.12 10^3/uL (1.8-7.7); Neutrophils % 75.3 %; Nucleated Red Blood Cells % 0 %; Platelet Count 215 10^3/cmm (130-400); Red Blood Count 4.89 10^6/uL (4.1-5.3); Red Cell Distribution Width 12.5 % (12.1-15.1); White Blood Count 9.5 10^3/uL (4.0-10.0)
[2021-01-04 12:06] LABS: Alkaline Phosphatase 73 IU/L (40-130); Chloride 98 mmol/L (98-107); Potassium 5.3 mmol/L (3.5-5.1); Sodium 135 mmol/L (136-145)
[2021-01-04 12:16] LABS: Troponin T (5th) Once 6 ng/L (0-15)
[2021-01-04 12:29] LABS: Alanine Aminotransferase 16 U/L (0-41); Aspartate Amino Transferase 21 U/L (0-40)
[2021-01-04 12:42] LABS: Add Urine Culture? No; Bacteria Urine TRACE /hpf; Bilirubin Urine Neg (Negative); Blood Urine Neg (Negative); Glucose Urine UA Norm (Normal); Ketones Urine Negative (Negative); Leukocyte Esterase Urine Negative (Negative); Nitrate Urine Negative (Negative); Protein Urine 1+ (Negative); Specific Gravity, Urine 1.005 (1.005-1.030); Urine Appearance Clear (CLEAR); Urine Color Straw (Yellow); Urobilinogen Urine Neg (Negative); pH Urine 6 (5-7)
[2021-01-04] MEDS: sodium chloride 0.9% 1,000 ML 999 ML IV (12:47)
[2021-01-04] MEDS: ondansetron 2 mg/ML SDV 2 mL 4 MG IVP (12:47)
[2021-01-04 12:55] VITALS: BP 113/62; PULSE 79; RESP 20; O2SAT 98
[2021-01-04 12:58] LABS: Anion Gap 18.3 (5-19); Blood Urea Nitrogen 18 mg/dL (6-20); Calcium 9.3 mg/dL (8.5-10.5); Carbon Dioxide 24 mmol/L (22-29); Globulin 2.3 g/dL (1.3-4.6); Glomerular Filtration Rate 105.5 mL/min (90-130); Lipase 16 U/L (13-60); Total Bilirubin 0.4 mg/dL (0.15-1.2); Total Protein 7.3 g/dL (6.6-8.7)
[2021-01-04 13:10] LABS: Glucose 73 mg/dL (65-115); Osmolality Calculated 280 mOsm/kg (285-295)
[2021-01-04 13:22] VITALS: BP 119/68; PULSE 66; RESP 16; TEMP 37.1; O2SAT 99
[2021-01-04 13:44] VITALS: BP 115/54; PULSE 71; RESP 18; O2SAT 98
[2021-01-05 14:07] LABS: Lyme AB Screen <0.90 index
[2021-01-08 17:18] LABS: E. Chaffeensis AB IGG <1:64; E. Chaffeensis AB IGM <1:20
[2021-01-09 22:29] LABS: RMSF IGG NOT DETECTED; RMSF IGM NOT DETECTED
== END 2021-01-04 13:46 | disposition home or self-care (01) ==
PROVIDERS: Emergency Provider Physician Assistant; PCP Nurse Practitioner Family
DX: R53.83 Other fatigue (principal); T50.B95A Adverse effect of other viral vaccines, initial encounter; S90.562A Insect bite (nonvenomous), left ankle, initial encounter; W57.XXXA Bitten or stung by nonvenomous insect and other nonvenomous arthropods, initial encounter; F17.210 Nicotine dependence, cigarettes, uncomplicated
CPT/HCPCS: 70450; 71045; 80053; 81001; 83690; 84484; 85025; 86618; 86666; 86757; 93005; 96361; 96374; 99284; J2405; J7030

== ENCOUNTER 2021-09-01 00:45 | Emergency (ER) | payer OTHER, SELFPAY ==
[2021-09-01 00:50] VITALS: BP 145/66; PULSE 67; RESP 18; TEMP 36.7; O2SAT 98; BMI 42.0
--- NOTE | 2021-09-01 00:58 | ECG_ITS ---
[facility] Test Date: 2021-09-01 Pat Name: Dima Castañeda Department: Room: Gender: Male Janitorial Supervisor: : 2000 Requested By: Sina Guzman Order Number: [id number] Erazo MD: Duncan Nash M.D. Measurements Intervals [place] Rate: 70 P: 55 CA: 143 QRS: 61 QRSD: 101 T: 59 QT: 363 QTc: 393 Interpretive Statements SINUS RHYTHM Compared to ECG 01/04/2021 12:07:41 Sinus arrhythmia no longer present Electronically Signed On 09-01-2021 11:32:31 CDT by Duncan Nash M.D. [id number]
--- NOTE | 2021-09-01 00:59 | ED_ITS ---
Documented by User: SOLEDAD Newton 09/01/21 01:46 HPI - Chest Pain General: Chief Complaint: Chest Pain Stated Complaint: cp Time Seen by Provider: 09/01/21 00:57 History of Present Illness: 21-year-old male patient comes in with some left chest wall pain at radiating into his left shoulder. Patient reports pain has been on and off for the last 3 months. Patient's father had a heart attack at 45 and has passed due to heart disease. Patient takes medication for blood pressure and anxiety. Patient is scheduled to see the radiological defense officer, Dr. Jo, on the of this month. Patient was at work and started having chest discomfort. MD complaint: chest pain Prior episodes: Yes Pain radiation: left arm Quality: tightness Relieving factors: other (Anxiety medication) Exacerbating factors: nothing Associated symptoms: Deny dyspnea, fever(s), nausea or vomiting Review of Systems General: Reports: 10 or more systems reviewed and unremarkable except in HPI and below Const: Denies: fever(s) Card: Reports: chest pain Resp: Denies: dyspnea GI: Denies: nausea or vomiting Musc: Reports: other (Left chest wall pain) Skin/Breast: Denies: rash PFSH ED PFSH: Medical History No pertinent past medical history Surgical History H/O shoulder surgery Family History Other CAD (coronary artery disease) Hypertension Social History Smoking and tobacco status: current every day smoker e-cigarettes E-Cigarette Details: with nicotine Quit status (tobacco): has tried quititng Number of times tried to quit tobacco: 2 Smoking risk assessment/counseling performed?: No Current gender identity: Male Physical Exam Const: COMMON NORMALS: alert HENMT: COMMON NORMALS: normocephalic HEAD & SCALP: normocephalic Neck/C-Spine: COMMON NORMALS: full ROM Chest: CHEST: Yes tenderness pectoral muscle on the left Resp: COMMON NORMALS: normal respiratory effort and clear to auscultation bilaterally AUSCULTATION: clear to auscultation bilaterally Cardio: COMMON NORMALS: regular rate and regular rhythm RATE: regular rate RHYTHM: regular rhythm GI: COMMON NORMALS: Soft to palpation and non-tender PALPATION: Yes Soft to palpation Extremity: COMMON NORMALS: no pedal edema Neuro: SENSORIUM/ORIENTATION: Yes alert Psych: COMMON NORMALS: cooperative Skin: COMMON NORMALS: no rashes or lesions noted GENERAL SKIN EXAM: no rashes or lesions noted Course Vital Signs: Vital signs: Vital Signs Temperature 98.0 F 09/01/21 00:50 Pulse Rate 67 09/01/21 00:50 Respiratory Rate 18 09/01/21 00:50 Blood Pressure 145/66 09/01/21 00:50 Pulse Oximetry 98 09/01/21 00:50 MDM - Chest Pain Medical Decision Making 21-year-old male patient comes in today with complaints of chest discomfort. Patient has some tenderness to chest wall on palpation. Patient was really anxious. Patient was 3 years old when he found his father due to a heart attack. Respirations were even lungs were clear to auscultation. Abdomen soft nontender. No edema is noted in the extremities. Differential diagnosis includes ACS, anxiety disorder, costochondritis. Chest x-ray was normal. Laboratory values were unremarkable. EKG was normal sinus rhythm. Patient was given 1 mg of lorazepam IV with improvement in symptoms. Believe the patient probably has anxiety secondary to find his father early age. Patient is getting older and is concerned for his own health. We will give patient a prescription for 10 tablets of lorazepam to use for severe anxiety. Patient reported understanding and agreed to plan. Patient will follow up with primary care and radiological defense officer as scheduled. Lab Data : 09/01/21 01:00 09/01/21 01:00 Radiology Impressions Chest X-Ray 09/01/21 01:07 IMPRESSION: No acute findings. Laboratory Results WBC 9.0 10^3/uL (4.0-10.0) 09/01/21 01:00 RBC 4.72 10^6/uL (4.1-5.3) 09/01/21 01:00 Hgb 13.1 g/dL (11.7-16.6) 09/01/21 01:00 Hct 39.8 % (42.0-52.0) L 09/01/21 01:00 MCV 84.3 fl (80-94) 09/01/21 01:00 MCH 27.8 pg (28.0-34.0) L 09/01/21 01:00 MCHC 32.9 g/dL (30.0-36.0) 09/01/21 01:00 RDW 12.1 % (12.1-15.1) 09/01/21 01:00 Plt Count 266 10^3/cmm (130-400) 09/01/21 01:00 MPV 10.1 fL (7.4-10.4) 09/01/21 01:00 Neut % (Auto) 64.9 % 09/01/21 01:00 Lymph % (Auto) 21.8 % 09/01/21 01:00 [place] % (Auto) 8.3 % 09/01/21 01:00 Eos % (Auto) 3.9 % 09/01/21 01:00 Baso % (Auto) 0.7 % 09/01/21 01:00 Neut # (Auto) 5.85 10^3/uL (1.8-7.7) 09/01/21 01:00 Lymph # (Auto) 2.0 10^3/uL (0.8-4.8) 09/01/21 01:00 [place] # (Auto) 0.8 10^3/uL (0.2-0.9) 09/01/21 01:00 Eos # (Auto) 0.4 10^3/uL (0.0-0.8) 09/01/21 01:00 Baso # (Auto) 0.1 10^3/uL (0.0-0.1) 09/01/21 01:00 Nucleated RBC % (auto) 0 % 09/01/21 01:00 Nucleated RBCs # 0.0 /100WBC 09/01/21 01:00 Sodium 138 mmol/L (136-145) 09/01/21 01:00 Potassium 4.1 mmol/L (3.5-5.1) 09/01/21 01:00 Chloride 102 mmol/L (98-107) 09/01/21 01:00 Carbon Dioxide 24 mmol/L (22-29) 09/01/21 01:00 Anion Gap 16.1 (5-19) 09/01/21 01:00 BUN 22 mg/dL (6-20) H 09/01/21 01:00 Creatinine 1.0 mg/dL (0.7-1.2) 09/01/21 01:00 GFR Calculation 92.6 mL/min (90-130) 09/01/21 01:00 Glucose 101 mg/dL (65-115) 09/01/21 01:00 Calculated Osmolality 289 mOsm/kg (285-295) 09/01/21 01:00 Calcium 9.7 mg/dL (8.5-10.5) 09/01/21 01:00 Total Bilirubin 0.2 mg/dL (0.15-1.2) 09/01/21 01:00 AST 46 U/L (0-40) H 09/01/21 01:00 ALT 73 U/L (0-41) H 09/01/21 01:00 Alkaline Phosphatase 67 IU/L (40-130) 09/01/21 01:00 Troponin T Gen 5 ng/L 12 ng/L (0-15) 09/01/21 01:00 Total Protein 7.6 g/dL (6.6-8.7) 09/01/21 01:00 Albumin 5.2 g/dL (3.5-5.2) 09/01/21 01:00 Globulin 2.4 g/dL (1.3-4.6) 09/01/21 01:00 EKG Data EKG 1: EKG interpretation date: 09/01/21 EKG interpretation time: 01:27 Interpretation: EKG shows a normal sinus rhythm with a regular rate at [address] elevation or ectopy is noted. No changes from prior exam. Discharge Plan Discharge Patient Disposition: Home Clinical Impression: Atypical chest pain Condition: Stable Prescriptions: New lorazepam 0.5 mg tablet 0.5 mg PO BID PRN (Reason: anxiety) Qty: 10 0RF No Action Tylenol Arthritis Pain 650 mg Tablet Extended Release 1,300 mg PO PRN 0RF BuSpar 10 mg Tablet 10 mg PO QAM 0RF lisinopril 5 mg Tablet 5 mg PO BID PRN (Reason: Blood Pressure) 0RF nystatin 100,000 unit/gram Powder 1 applic TOPICAL BID PRN (Reason: unknown) 0RF ProAir HFA 90 mcg/actuation Hfa Aerosol Inhaler 2 puff INHALATION Q4H PRN (Reason: Shortness Of Breath) 0RF Flonase 50 mcg/actuation [place],Suspension 2 spray INTRANASAL DAILY PRN (Reason: Allergy Symptoms) 0RF fluoxetine 40 mg capsule 40 mg PO QAM 0RF propranolol 20 mg tablet 20 mg PO QAM 0RF mirtazapine 7.5 mg tablet 7.5 mg PO BEDTIME 0RF Discharge Orders: Discharge ED (Routine); Ordered 09/01/21 Ordered By: Sina Jaramillo Referrals: Radha Infante FNP [Primary Care Provider] - Discharge Diet: Usual diet Discharge Activity: Increase activity as tolerated Patient Instructions: Chest Pain (ED) Activity Restrictions/Additional Instructions: Home and rest. Continue with routine care as directed. Drink plenty of water and fluids. Follow-up with primary care for further instruction. Keep appointment with radiological defense officer as scheduled. Return to ER for new concerns. Stand Alone Forms: Work/School Release Coding Level of Care Code ED An/Syq 13 Nav/C2 Operator for Chg Fwd Exam Comprehensive Documented by User: Eliseo Nugent DO 09/01/21 02:15 HPI - Chest Pain General: Chief Complaint: Chest Pain Stated Complaint: cp Time Seen by Provider: 09/01/21 00:57 PFSH ED PFSH: Medical History No pertinent past medical history Surgical History H/O shoulder surgery Family History Other CAD (coronary artery disease) Hypertension Social History Smoking and tobacco status: current every day smoker e-cigarettes E-Cigarette Details: with nicotine Quit status (tobacco): has tried quititng Number of times tried to quit tobacco: 2 Smoking risk assessment/counseling performed?: No Current gender identity: Male Course Vital Signs: Vital signs: Vital Signs Temperature 98.0 F 09/01/21 00:50 Pulse Rate 67 09/01/21 00:50 Respiratory Rate 18 09/01/21 00:50 Blood Pressure 145/66 09/01/21 00:50 Pulse Oximetry 98 09/01/21 00:50 MDM - Chest Pain Medical Decision Making 21-year-old male patient comes in today with complaints of chest discomfort. Patient has some tenderness to chest wall on palpation. Patient was really anxious. Patient was 3 years old when he found his father due to a heart attack. Respirations were even lungs were clear to auscultation. Abdomen soft nontender. No edema is noted in the extremities. Differential diagnosis includes ACS, anxiety disorder, costochondritis. Chest x-ray was normal. Laboratory values were unremarkable. EKG was normal sinus rhythm. Patient was given 1 mg of lorazepam IV with improvement in symptoms. Believe the patient probably has anxiety secondary to find his father early age. Patient is getting older and is concerned for his own health. We will give patient a prescription for 10 tablets of lorazepam to use for severe anxiety. Patient reported understanding and agreed to plan. Patient will follow up with primary care and radiological defense officer as scheduled. This patient was originally seen by SOLEDAD Hernandez.? I agree with his history, evaluation, and treatment. Lab Data : 09/01/21 01:00 09/01/21 01:00 Radiology Impressions Chest X-Ray 09/01/21 01:07 IMPRESSION: No acute findings. Laboratory Results WBC 9.0 10^3/uL (4.0-10.0) 09/01/21 01:00 RBC 4.72 10^6/uL (4.1-5.3) 09/01/21 01:00 Hgb 13.1 g/dL (11.7-16.6) 09/01/21 01:00 Hct 39.8 % (42.0-52.0) L 09/01/21 01:00 MCV 84.3 fl (80-94) 09/01/21 01:00 MCH 27.8 pg (28.0-34.0) L 09/01/21 01:00 MCHC 32.9 g/dL (30.0-36.0) 09/01/21 01:00 RDW 12.1 % (12.1-15.1) 09/01/21 01:00 Plt Count 266 10^3/cmm (130-400) 09/01/21 01:00 MPV 10.1 fL (7.4-10.4) 09/01/21 01:00 Neut % (Auto) 64.9 % 09/01/21 01:00 Lymph % (Auto) 21.8 % 09/01/21 01:00 [place] % (Auto) 8.3 % 09/01/21 01:00 Eos % (Auto) 3.9 % 09/01/21 01:00 Baso % (Auto) 0.7 % 09/01/21 01:00 Neut # (Auto) 5.85 10^3/uL (1.8-7.7) 09/01/21 01:00 Lymph # (Auto) 2.0 10^3/uL (0.8-4.8) 09/01/21 01:00 [place] # (Auto) 0.8 10^3/uL (0.2-0.9) 09/01/21 01:00 Eos # (Auto) 0.4 10^3/uL (0.0-0.8) 09/01/21 01:00 Baso # (Auto) 0.1 10^3/uL (0.0-0.1) 09/01/21 01:00 Nucleated RBC % (auto) 0 % 09/01/21 01:00 Nucleated RBCs # 0.0 /100WBC 09/01/21 01:00 Sodium 138 mmol/L (136-145) 09/01/21 01:00 Potassium 4.1 mmol/L (3.5-5.1) 09/01/21 01:00 Chloride 102 mmol/L (98-107) 09/01/21 01:00 Carbon Dioxide 24 mmol/L (22-29) 09/01/21 01:00 Anion Gap 16.1 (5-19) 09/01/21 01:00 BUN 22 mg/dL (6-20) H 09/01/21 01:00 Creatinine 1.0 mg/dL (0.7-1.2) 09/01/21 01:00 GFR Calculation 92.6 mL/min (90-130) 09/01/21 01:00 Glucose 101 mg/dL (65-115) 09/01/21 01:00 Calculated Osmolality 289 mOsm/kg (285-295) 09/01/21 01:00 Calcium 9.7 mg/dL (8.5-10.5) 09/01/21 01:00 Total Bilirubin 0.2 mg/dL (0.15-1.2) 09/01/21 01:00 AST 46 U/L (0-40) H 09/01/21 01:00 ALT 73 U/L (0-41) H 09/01/21 01:00 Alkaline Phosphatase 67 IU/L (40-130) 09/01/21 01:00 Troponin T Gen 5 ng/L 12 ng/L (0-15) 09/01/21 01:00 Total Protein 7.6 g/dL (6.6-8.7) 09/01/21 01:00 Albumin 5.2 g/dL (3.5-5.2) 09/01/21 01:00 Globulin 2.4 g/dL (1.3-4.6) 09/01/21 01:00 Discharge Plan Discharge Patient Disposition: Home Clinical Impression: Atypical chest pain Condition: Stable Prescriptions: New lorazepam 0.5 mg tablet 0.5 mg PO BID PRN (Reason: anxiety) Qty: 10 0RF No Action Tylenol Arthritis Pain 650 mg Tablet Extended Release 1,300 mg PO PRN 0RF BuSpar 10 mg Tablet 10 mg PO QAM 0RF lisinopril 5 mg Tablet 5 mg PO BID PRN (Reason: Blood Pressure) 0RF nystatin 100,000 unit/gram Powder 1 applic TOPICAL BID PRN (Reason: unknown) 0RF ProAir HFA 90 mcg/actuation Hfa Aerosol Inhaler 2 puff INHALATION Q4H PRN (Reason: Shortness Of Breath) 0RF Flonase 50 mcg/actuation [place],Suspension 2 spray INTRANASAL DAILY PRN (Reason: Allergy Symptoms) 0RF fluoxetine 40 mg capsule 40 mg PO QAM 0RF propranolol 20 mg tablet 20 mg PO QAM 0RF mirtazapine 7.5 mg tablet 7.5 mg PO BEDTIME 0RF Discharge Orders: Discharge ED (Routine); Ordered 09/01/21 Ordered By: Sina Jaramillo Referrals: Radha Infante FNP [Primary Care Provider] - Discharge Diet: Usual diet Discharge Activity: Increase activity as tolerated Patient Instructions: Chest Pain (ED) Activity Restrictions/Additional Instructions: Home and rest. Continue with routine care as directed. Drink plenty of water and fluids. Follow-up with primary care for further instruction. Keep appointment with radiological defense officer as scheduled. Return to ER for new concerns. Stand Alone Forms: Work/School Release Coding Level of Care Code ED An/Syq 13 Nav/C2 Operator for Yusuf Fwd Exam Comprehensive
[2021-09-01 01:06] LABS: Basophils # 0.1 10^3/uL (0.0-0.1); Basophils % 0.7 %; Eosinophils # 0.4 10^3/uL (0.0-0.8); Eosinophils % 3.9 %; Hematocrit 39.8 % (42.0-52.0); Hemoglobin 13.1 g/dL (11.7-16.6); Lymphocytes % 21.8 %; Mean Corpuscular HGB Conc 32.9 g/dL (30.0-36.0); Mean Corpuscular Hemoglobin 27.8 pg (28.0-34.0); Mean Corpuscular Volume 84.3 fl (80-94); Mean Platelet Volume 10.1 fL (7.4-10.4); Monocytes # 0.8 10^3/uL (0.2-0.9); Monocytes % 8.3 %; Neutrophils # 5.85 10^3/uL (1.8-7.7); Neutrophils % 64.9 %; Nucleated Red Blood Cells % 0 %; Platelet Count 266 10^3/cmm (130-400); Red Blood Count 4.72 10^6/uL (4.1-5.3); Red Cell Distribution Width 12.1 % (12.1-15.1)
--- NOTE | 2021-09-01 01:07 | XRR_ITS ---
PROCEDURE INFORMATION: Exam: XR Chest Exam date and time: 09/01/2021 1:14 AM Age: 21 years old Clinical indication: Chest pressure; Patient HX: C/O chest pain; Additional info: Cp TECHNIQUE: Imaging protocol: XR of the chest. Views: 1 view. COMPARISON: CR XR chest 1V portable [id number] 01/04/2021 11:20 AM FINDINGS: Lungs: Poor inspiratory effort with some crowding of pulmonary markings and possible accentuation of the apparent heart size. Pleural spaces: Unremarkable. No pleural effusion. No pneumothorax. Heart/Mediastinum: See Lungs finding. Bones/joints: Unremarkable. Other findings: Patient rotation to the right. XR/XR chest 1V portable [id number] IMPRESSION: No acute findings.
[2021-09-01] MEDS: LORazepam 2 mg/mL INJ 1 mL 1 MG IVP (01:10)
[2021-09-01 01:33] LABS: Alanine Aminotransferase 73 U/L (0-41); Albumin Level 5.2 g/dL (3.5-5.2); Alkaline Phosphatase 67 IU/L (40-130); Anion Gap 16.1 (5-19); Aspartate Amino Transferase 46 U/L (0-40); Blood Urea Nitrogen 22 mg/dL (6-20); Calcium 9.7 mg/dL (8.5-10.5); Carbon Dioxide 24 mmol/L (22-29); Chloride 102 mmol/L (98-107); Creatinine Clr Calc Pharmacy 121.0469; Globulin 2.4 g/dL (1.3-4.6); Glomerular Filtration Rate 92.6 mL/min (90-130); Glucose 101 mg/dL (65-115); Osmolality Calculated 289 mOsm/kg (285-295); Potassium 4.1 mmol/L (3.5-5.1); Sodium 138 mmol/L (136-145); Total Bilirubin 0.2 mg/dL (0.15-1.2); Total Protein 7.6 g/dL (6.6-8.7)
[2021-09-01 01:34] LABS: Troponin T (5th) Once 12 ng/L (0-15)
[2021-09-01 02:30] VITALS: BP 145/66; PULSE 84; RESP 18
== END 2021-09-01 02:32 | disposition home or self-care (01) ==
PROVIDERS: Emergency Provider Nurse Practitioner Family; PCP Nurse Practitioner Family
DX: R07.89 Other chest pain (principal); F17.290 Nicotine dependence, other tobacco product, uncomplicated; Z82.49 Family history of ischemic heart disease and other diseases of the circulatory system; F41.9 Anxiety disorder, unspecified
CPT/HCPCS: 71045; 80053; 84484; 85025; 93005; 96374; 99283; J2060

== ENCOUNTER 2021-11-19 15:04 | Outpatient (CLI) | payer OTHER, SELFPAY ==
--- NOTE | 2021-11-19 15:16 | USCV_ITS ---
Dima Castañeda Age: 21 Gender: M : 2000 Exam Date: 11/19/2021 15:30 Ordering Phys: Bruce Jo MD ([email or web address]) Technologist: JOHNATHAN Exam Location: [facility] [place] Indication: Palpations and strong family history of heart disease BP: 160 / 90 HR: 70 Rhythm: Sinus Technical Quality: Adequate MEASUREMENTS (Male / Female) Normal Values 2D ECHO LV Diastolic Diameter PLAX 4.1 cm 4.2 - 5.9 / 3.9 - 5.3 cm LV Systolic Diameter PLAX 3.1 cm IVS Diastolic Thickness 0.9 cm 0.6 - 1.0 / 0.6 - 0.9 cm IVS Systolic Thickness 1.2 cm LVPW Diastolic Thickness 1.4 cm 0.6 - 1.0 / 0.6 - 0.9 cm LVPW Systolic Thickness 1.3 cm LVOT Diameter 2.0 cm LV Ejection Fraction 2D Teich 49.4 % LV Ejection Fraction MOD 2C 51.4 % LV Ejection Fraction 2C AL 52.0 % LA Diameter 2.0 cm LA Width 3.3 cm LA Height 4.5 cm RA Width 3.2 cm RA Height 4.0 cm Aorta at Sinotubular Diameter 2.4 cm IVC Diameter 2.5 cm M-MODE Aortic Annulus Diameter 2.8 cm LA Ao Ratio MM 0.9 MV E Point Septal Separation 1.1 cm DOPPLER AV Peak Velocity 159.0 cm/s LVOT Peak Velocity 125.0 cm/s AV Area Cont Eq vti 2.4 cm squared AV Area Cont Eq pk 2.5 cm squared MV Area PHT 2.9 cm squared Mitral E to A Ratio 1.7 MV E' Velocity 62.5 cm/s Mitral E to MV E' Ratio 6.4 Mitral E to LV E' Lateral Ratio 5.6 Mitral E to LV E' Septal Ratio 7.3 TR Peak Velocity 151.7 cm/s TR Peak Gradient 9.2 mmHg TR Mean Velocity 118.1 cm/s TR Mean Gradient 6.2 mmHg TR Velocity Time Integral 39.9 cm Right Atrial Pressure 3.0 mmHg Pulmonary Artery Systolic Pressu 12.2 mmHg PV Peak Velocity 96.0 cm/s RV Acceleration Time 0.2 s RV Ejection Time 0.3 s RV AcT/ET 0.5 FINDINGS Left Ventricle Normal left ventricular size and systolic function, EF 58 %. No regional wall motion abnormalities. Right Ventricle The right ventricle is normal in size and function. Right Atrium The right atrium is normal in size. Left Atrium The left atrium is normal in size. Mitral Valve No gross abnormalities noted Aortic Valve No gross abnormalities noted Tricuspid Valve Trace tricuspid valve regurgitation. Estimated pulmonary artery peak systolic pressure within normal limits Pulmonic Valve No gross abnormalities noted Pericardium Normal pericardium without effusion. Aorta Normal aortic annulus size. IVC Not well-visualized CONCLUSIONS Normal left ventricular size and systolic function, EF 58 %. No regional wall motion abnormalities. Normal cardiac chamber sizes. Trace tricuspid valve regurgitation. Estimated pulmonary artery peak systolic pressure within normal limits. There is no pericardial effusion. There are no intracardiac masses. Compared to the study from 04/25/2016, there may not be a significant change Dr Bruce Jo MD FACC (Electronically Signed) Final Date: 20 November 2021 06:49 S
== END 2021-11-19 15:05 | disposition home or self-care (01) ==
PROVIDERS: PCP Nurse Practitioner Family; Visit Provider Internal Medicine Cardiovascular Disease
DX: I07.1 Rheumatic tricuspid insufficiency (principal); R00.2 Palpitations
CPT/HCPCS: 93306

== ENCOUNTER 2022-01-02 13:01 | Outpatient (CLI) | payer OTHER, SELFPAY ==
[2022-01-02 13:28] VITALS: BMI 31.5
--- NOTE | 2022-01-02 13:28 | ECG_ITS ---
[facility] Test Date: 2022-01-02 Pat Name: Dima Castañeda Department: Room: Gender: Male Paleologist: Skye Thrasher : 2000 Requested By: Bruce Jo Order Number: [id number] Castro MD: Bruce Jo M.D. Interpretive Statements NAME OF STUDY: TREADMILL STRESS TEST INDICATION: Chest Pain, palpitations, PROCEDURE: At the baseline, the patient's blood pressure was 131/66 with a heart rate of 71 bpm. The baseline electrocardiogram showed normal sinus rhythm with normal ST-Ts. Possible old inferolateral wall myocardial infarction The patient exercised for 10 minutes and 1 second on a standard Jason protocol. Patient attained a maximum heart rate of 175 beats per minute(88% of the maximum predicted heart rate) with a blood pressure at the peak exercise of 185/88 mm Hg. The EKG at the peak exercise revealed no significant changes. Patient did not have any chest pain or any significant cardiac arrhythmias with the exercise During the recovery phase, there were no new changes. Blood pressure at the end of the recovery phase was 148/71 mm Hg with a heart rate of 95 per minute. CONCLUSION: 1. Normal EKG response to treadmill exercise 2. No exercise-induced chest pain or cardiac arrhythmia 3. Good exercise tolerance, attained a maximum of 13.5 METs Electronically Signed On 01-05-2022 19:58:06 CDT by Bruce oJ M.D. [email or web address]
[2022-01-02 14:13] VITALS: BP 149/71; PULSE 95
== END 2022-01-02 13:02 | disposition home or self-care (01) ==
LOC: CDL 13:03
PROVIDERS: PCP Nurse Practitioner Family; Visit Provider Internal Medicine Cardiovascular Disease
DX: R07.9 Chest pain, unspecified (principal); R00.2 Palpitations
CPT/HCPCS: 93017

== ENCOUNTER 2023-01-28 11:50 | Outpatient (CLI) | payer OTHER, SELFPAY ==
--- NOTE | 2023-01-28 12:06 | XR_ITS ---
WS: [id number] Exam: XR hip BI 3-4V wo/w pel [id number] Date/Time of Exam: 01/28/2023 12:20 PM Reason For Exam: Hip Pain Comparison 07/08/2011. No fracture or dislocation of either hip. The joint compartments are relatively well-maintained. Norm al bilateral soft tissues. IMPRESSION: 1. Negative bilateral hips.
== END 2023-01-28 11:51 | disposition home or self-care (01) ==
PROVIDERS: PCP Nurse Practitioner Family; Visit Provider Emergency Medicine
DX: M25.551 Pain in right hip (principal); M25.552 Pain in left hip
CPT/HCPCS: 73522

== ENCOUNTER → 2024-04-26 11:04 | Outpatient (BNVA) | payer OTHER, SELFPAY | PROVIDERS: PCP Nurse Practitioner Family; Visit Provider Nurse Practitioner | DX: M16.0 Bilateral primary osteoarthritis of hip; M25.851 Other specified joint disorders, right hip; M25.551 Pain in right hip; M25.552 Pain in left hip | CPT/HCPCS: 73522 ==

== ENCOUNTER → 2024-05-14 12:04 | Outpatient (BNVA) | payer OTHER, SELFPAY | PROVIDERS: PCP Nurse Practitioner Family; Visit Provider Specialist | DX: M25.851 Other specified joint disorders, right hip (principal); M16.0 Bilateral primary osteoarthritis of hip | CPT/HCPCS: 77002 ==

== ENCOUNTER → 2024-05-24 08:41 | Outpatient (BNVA) | payer OTHER, SELFPAY | PROVIDERS: PCP Nurse Practitioner Family; Visit Provider Nurse Practitioner | DX: M25.561 Pain in right knee (principal); M25.571 Pain in right ankle and joints of right foot; M23.51 Chronic instability of knee, right knee; M16.0 Bilateral primary osteoarthritis of hip | CPT/HCPCS: 73560; 73565 ==

== ENCOUNTER → 2025-01-10 15:47 | Outpatient (BNVA) | payer OTHER, SELFPAY | PROVIDERS: PCP Nurse Practitioner Family; Visit Provider Nurse Practitioner | DX: M16.0 Bilateral primary osteoarthritis of hip (principal); M25.851 Other specified joint disorders, right hip | CPT/HCPCS: 73502 ==

== ENCOUNTER → 2025-01-21 11:39 | Outpatient (BNVA) | payer OTHER, SELFPAY | PROVIDERS: PCP Nurse Practitioner Family; Visit Provider Specialist | DX: M25.851 Other specified joint disorders, right hip (principal); M16.0 Bilateral primary osteoarthritis of hip | CPT/HCPCS: 77002 ==

== ENCOUNTER 2025-03-11 06:48 | Outpatient (CLI) | payer OTHER, SELFPAY ==
--- NOTE | 2025-03-11 06:56 | US_ITS ---
WS: [id number] RIGHT UPPER QUADRANT ULTRASOUND HISTORY: ELEVATED LIVER ENZYMES COMPARISON: 11/11/2023, MRI 12/15/2023 Liver: 14.4 cm in length. Normal size liver. Vague very subtle area of decreased echogenicity in the LEFT lobe of the liver measures 1.9 x 1.8 x 1.3 cm. There is mild increased vascularity centrally. This lesion has been previously described by ultrasound on 11/11/2023 and no increase in size. This lesion is slightly more echogenic than on the prior study. Portal Vein: Normal hepatopetal flow with monophasic waveform. Gallbladder: Normally distended gallbladder with no stones or wall thickening. CBD: 0.2 cm Pancreas: Obscured by bowel gas. Right kidney: 10.3 cm in length. Normal size and echogenicity. No hydronephrosis or mass. Aorta and IVC: Unremarkable abdominal aorta and IVC. No ascites. US/US abdomen limited [id number] IMPRESSION: 1. Stable hypoechoic mass in the LEFT lobe of the liver measuring 1.9 x 1.8 x 1.3 cm. No significant change in size since 11/11/2023 over the MRI from 12/15/19 24. 2. Normal gallbladder. 3. No ascites.
== END 2025-03-11 06:49 | disposition home or self-care (01) ==
LOC: RAD 06:50
PROVIDERS: PCP Nurse Practitioner Family; Visit Provider Nurse Practitioner Family
DX: R74.8 Abnormal levels of other serum enzymes (principal); R16.0 Hepatomegaly, not elsewhere classified
CPT/HCPCS: 76705